=== PATIENT | male | born 1995 | race Hispanic/Latino ===

== ENCOUNTER 2019-07-31 20:54 | Emergency (ER) | payer OTHER ==
[2019-07-31 21:59] LABS: BASOPHILS % (AUTO) 0.3 % (0.0-5.0); EOSINOPHILS % (AUTO) 5.7 % (0.0-8.0); HEMATOCRIT 44.3 % (42-54); LYMPHOCYTES % (AUTO) 21.6 % (21.0-51.0); MEAN CORPUSCULAR HEMOGLOBIN 26.6 pg (27.0-33.0); MEAN CORPUSCULAR HGB CONC 30.9 g/dL (32.0-36.0); MEAN CORPUSCULAR VOLUME 85.9 fL (79-99); MONOCYTES % (AUTO) 13.3 % (3.0-13.0); NEUTROPHILS % (AUTO) 58.6 % (40.0-77.0); PLATELET COUNT (AUTO) 248 K/uL (130-400); RED BLOOD CELL COUNT(AUTO) 5.16 MIL/uL (4.50-6.20); RED CELL DISTRIBUTION WIDTH 12.8 % (11.0-15.5); WHITE BLOOD COUNT (AUTO) 5.8 K/uL (4.8-10.8)
[2019-07-31 22:12] LABS: POTASSIUM 3.6 mmol/L (3.5-5.1)
[2019-07-31] MEDS ORDERED: KETOROLAC TROMETHAMINE 15MG/ML ONE (23:00)
== END 2019-07-31 23:08 | disposition home or self-care (01) ==
LOC: EDH 20:54
DX: B02.9 Zoster without complications (principal); Z91.040 Latex allergy status
CPT/HCPCS: 36415; 80048; 85025; 96374; 99284; J1885